=== PATIENT | female | born 1935 | race Caucasian/White ===

== ENCOUNTER 2018-02-23 10:24 | Emergency (ER) | payer MEDICARE, BC ==
[2018-02-23] MEDS ORDERED: Metoprolol Tartrate 50 MG Tab PO ONE (11:12)
[2018-02-23 11:27] VITALS: BP 155/81
--- NOTE | 2018-02-23 11:28 | EDM.PDOC ---
ED HPI GENERAL MEDICAL PROBLEM - General Chief Complaint: Cardiovascular Problem Stated Complaint: FAST PULSE,SOB Time Seen by Provider: 02/23/18 11:10 Source of Information: Reports: Patient, Family, Old Records, RN History Limitations: Reports: No Limitations - History of Present Illness INITIAL COMMENTS - FREE TEXT/NARRATIVE: 83 yo female with previous tachycardia was recently placed on metoprolol tartrate 50 mg bid for this tachycardia and had an outpatient CT scan of her chest this morning as part of the work up for her tachycardia. She did not take the metoprolol this morning as they wanted her NPO for the CT and she thought she had to take it with food. Is now more SOB and her heart faster so comes to the ER for evaluation(may be more symptomatic due to not taking her metoprolol) . Has known COPD and uses oxygen at home on a prn basis. Denies fever, cough, pain with breathing, leg edema, calf pain, vomiting, diarrhea, or chest pain. - Related Data Allergies Allergy/AdvReac Type Severity Reaction Status Date / Time No Known Allergies Allergy Verified 02/23/18 10:37 Home Meds: Home Meds Anastrozole 1 tab PO DAILY 04/12/15 [History] Montelukast [Singulair] 10 mg PO ONETIME 04/12/15 [History] Pramipexole [Mirapex] 0.5 mg PO BEDTIME 04/12/15 [History] Valsartan/Hydrochlorothiazide [Valsartan-Hctz 80-12.5 mg Tab] 12.5 - 80 mg PO DAILY 04/12/15 [History] Venlafaxine HCl [Venlafaxine ER] 37.5 mg PO BEDTIME 04/12/15 [History] Albuterol Sulfate [Proair Hfa] 2 puff IH Q4HR PRN 10/11/15 [History] Fluticasone/Salmeterol [Advair 250-50 Diskus] 1 puff INH BID 10/11/15 [History] Levalbuterol Tartrate [Levalbuterol Tartrate Hfa] 2 puff IH DAILY 02/23/18 [ History] Metoprolol Tartrate 50 mg PO BID 02/23/18 [History] Past Medical History HEENT History: Reports: Cataract, Impaired Vision Cardiovascular History: Reports: Hypertension Respiratory History: Reports: Asthma, COPD Gastrointestinal History: Reports: Cholelithiasis, GERD Other OB/BYN History: Bilateral mastectomy Musculoskeletal History: Reports: Arthritis, Osteoporosis Oncologic (Cancer) History: Reports: Breast Dermatologic History: Reports: Benign Melanoma - Infectious Disease History Infectious Disease History: Reports: C-Difficile, Measles, Mumps, Shingles - Past Surgical History HEENT Surgical History: Reports: Cataract Surgery GI Surgical History: Reports: Cholecystectomy Oncologic Surgical History: Reports: Mastectomy Dermatological Surgical History: Reports: Skin Biopsy Social & Family History - Tobacco Use Smoking Status *Q: Never Smoker Second Hand Smoke Exposure: Yes - Caffeine Use Caffeine Use: Reports: Soda - Alcohol Use Days Per Week of Alcohol Use: 0 - Recreational Drug Use Recreational Drug Use: No ED ROS GENERAL - Review of Systems Review Of Systems: See Below Constitutional: Reports: No Symptoms HEENT: Reports: No Symptoms Respiratory: Reports: Shortness of Breath Cardiovascular: Reports: Palpitations GI/Abdominal: Reports: No Symptoms : Reports: No Symptoms Musculoskeletal: Reports: No Symptoms Skin: Reports: No Symptoms Neurological: Reports: No Symptoms Psychiatric: Reports: Anxiety ED EXAM, GENERAL - Physical Exam Exam: See Below Exam Limited By: No Limitations General Appearance: Alert, WD/WN, No Apparent Distress, Anxious Eye Exam: Bilateral Eye: Normal Inspection Ears: Normal External Exam, Normal Canal, Hearing Grossly Normal, Normal TMs Ear Exam: Bilateral Ear: Auricle Normal, Canal Normal, TM normal Nose: Normal Inspection, Normal Mucosa, No Blood Throat/Mouth: Normal Inspection, Normal Lips, Normal Oropharynx, Normal Voice, No Airway Compromise Head: Atraumatic, Normocephalic Neck: Normal Inspection, Supple, Non-Tender Respiratory/Chest: No Respiratory Distress, Lungs Clear, Normal Breath Sounds, No Accessory Muscle Use Cardiovascular: Regular Rate, Rhythm, No Edema, Tachycardia GI/Abdominal: Normal Bowel Sounds, Soft, Non-Tender, No Distention Back Exam: Normal Inspection. No: CVA Tenderness (R), CVA Tenderness (L) Extremities: Normal Inspection, Normal Range of Motion, Non-Tender, No Pedal Edema Neurological: Alert, Oriented, CN II-XII Intact, Normal Cognition, No Motor/ Sensory Deficits Psychiatric: Normal Affect, Normal Mood, Anxious Skin Exam: Warm, Dry, Intact, Normal Color, No Rash Lymphatic: No Adenopathy Course - Vital Signs Text/Narrative:: Chest CT scan done as outpatient before ER arrival negative for any pathology. Feeling back to normal after administration of metoprolol tartrate 50 mg po Last Recorded V/S: Last Vital Signs Temp 37.4 C 02/23/18 10:32 Pulse 114 H 02/23/18 11:23 Resp 36 H 02/23/18 10:32 BP 155/81 H 02/23/18 11:23 Pulse Ox 96 02/23/18 10:32 - Orders/Labs/Meds Meds: Medications Discontinued Medications Generic Name Dose Route Start Last Admin Trade Name Freq PRN Reason Stop Dose Admin Metoprolol Tartrate 50 mg 02/23/18 11:12 02/23/18 11:23 Lopressor PO 02/23/18 11:13 50 mg ONETIME ONE Administration Departure - Departure Time of Disposition: 12:13 Disposition: Home, Self-Care 01 Condition: Good Clinical Impression: Tachycardia, Anxiety - Discharge Information Referrals: Nikolay Whittaker JIG HAND [Primary Care Provider] - Forms: ED Department Discharge
== END 2018-02-23 12:47 | disposition home or self-care (01) ==
LOC: JP.ED 10:24
DX: R00.0 Tachycardia, unspecified (principal); F41.9 Anxiety disorder, unspecified; I10 Essential (primary) hypertension; J44.9 Chronic obstructive pulmonary disease, unspecified; Z79.899 Other long term (current) drug therapy; Z77.22 Contact with and (suspected) exposure to environmental tobacco smoke (acute) (chronic); J43.9 Emphysema, unspecified; R06.00 Dyspnea, unspecified; R91.8 Other nonspecific abnormal finding of lung field
CPT/HCPCS: 71260; 99284; A9270; J7030; Q9967

== ENCOUNTER 2019-06-27 20:04 | Emergency (ER) | payer MEDICARE, BC ==
--- NOTE | 2019-06-28 00:03 | CRLCR ---
INDICATION: Wrist pain after fall. COMPARISON: None available. TECHNIQUE: AP, lateral, and oblique views of the right wrist are obtained for a total of three views. FINDINGS: There appears to be an acute on chronic fracture of the distal radius. There are well-defined areas of cortical disruption along the radial aspect of the distal radius, seen both on the AP and oblique views. There is a transverse fracture line across the distal radius which is poorly defined and has mild sclerosis, consistent with a healed or healing fracture. There is mild dorsal angulation of the distal portion of the radius consistent with impaction. What appears to be a small ossific fragment located dorsal to the distal radius is possibly partially healed with the rest of the distal radius. There is a transverse fracture of the ulnar styloid with mild distraction of fracture fragments. 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 The bones of the carpus are in anatomic alignment with the distal radius. 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 There is mild widening of the scapholunate articulation consistent with disruption of the scapholunate ligament. The soft tissues are normal in appearance with no sign of foreign body. IMPRESSION: Findings suggesting an acute, nondisplaced fracture of the radial aspect of the distal radius superimposed upon a healed or healing transverse fracture of the distal radius. Please see the discussion above. Mild dorsal angulation of the distal portion of the radius consistent with impaction. Transverse fracture of the base of the ulnar styloid with mild distraction, with ill-defined margins consistent with a subacute fracture and nonunion. 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 Dictated by Marquez Macias MD @ Jun 27 2019 11:55PM Signed by Dr. Marquez Macias @ Jun 28 2019 12:02AM
[2019-06-28] MEDS ORDERED: Ibuprofen 600 MG Tab PO ONE (00:12)
--- NOTE | 2019-06-28 00:17 | EDM.PDOC ---
ED HPI GENERAL MEDICAL PROBLEM - General Chief Complaint: Upper Extremity Injury/Pain Stated Complaint: FELL BROKE WRIST Time Seen by Provider: 06/27/19 23:40 Source of Information: Reports: Patient, Family, RN Notes Reviewed History Limitations: Reports: No Limitations - History of Present Illness INITIAL COMMENTS - FREE TEXT/NARRATIVE: 84-year-old female presents emergency department today following a fall at home , she injured herself when she tripped over her oxygen tubing she has bruising on her right hand small cut on her left hand and a cut near her left ear she denies any loss of consciousness has no other complaints - Related Data Allergies Allergy/AdvReac Type Severity Reaction Status Date / Time No Known Allergies Allergy Verified 06/28/19 00:16 Home Meds: Home Meds Montelukast [Singulair] 10 mg PO ONETIME 04/12/15 [History] Pramipexole [Mirapex] 0.5 mg PO BEDTIME 04/12/15 [History] Valsartan/Hydrochlorothiazide [Valsartan-Hctz 80-12.5 mg Tab] 12.5 - 80 mg PO DAILY 04/12/15 [History] Venlafaxine HCl [Venlafaxine ER] 37.5 mg PO BEDTIME 04/12/15 [History] Albuterol Sulfate [Proair Hfa] 2 puff IH Q4HR PRN 10/11/15 [History] Fluticasone/Salmeterol [Advair 250-50 Diskus] 1 puff INH BID 10/11/15 [History] Levalbuterol Tartrate [Levalbuterol Tartrate Hfa] 2 puff IH DAILY 02/23/18 [ History] Metoprolol Tartrate 50 mg PO BID 02/23/18 [History] Albuterol [Proventil Neb Soln] 2.5 mg INH DAILY 06/28/19 [History] Past Medical History HEENT History: Reports: Cataract, Impaired Vision Cardiovascular History: Reports: Hypertension Respiratory History: Reports: Asthma, COPD, Other (See Below) Other Respiratory History: home O2 Gastrointestinal History: Reports: Cholelithiasis, GERD 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: Bilateral mastectomy Musculoskeletal History: Reports: Arthritis, Osteoporosis Oncologic (Cancer) History: Reports: Breast Dermatologic History: Reports: Benign Melanoma - Infectious Disease History Infectious Disease History: Reports: C-Difficile, Measles, Mumps, Shingles - Past Surgical History HEENT Surgical History: Reports: Cataract Surgery GI Surgical History: Reports: Cholecystectomy Oncologic Surgical History: Reports: Mastectomy Dermatological Surgical History: Reports: Skin Biopsy Social & Family History - Tobacco Use Smoking Status *Q: Never Smoker Second Hand Smoke Exposure: No - Caffeine Use Caffeine Use: Reports: Coffee, Soda - Recreational Drug Use Recreational Drug Use: No Review of Systems - Review of Systems Review Of Systems: See Below Constitutional: Reports: No Symptoms Eyes: Reports: No Symptoms Ears: Reports: No Symptoms Nose: Reports: No Symptoms Mouth/Throat: Reports: No Symptoms Respiratory: Reports: No Symptoms Cardiovascular: Reports: No Symptoms GI/Abdominal: Reports: No Symptoms Genitourinary: Reports: No Symptoms Musculoskeletal: Reports: Joint Pain (Wrist pain and pain bilaterally) Skin: Reports: Wound ED EXAM, GENERAL - Physical Exam Exam: See Below Free Text/Narrative:: General: Elderly female, not in any distress, alert and oriented x3 HEENT: head is small laceration is located near the left ear pinna normocephalic, eyes pupils equal round reactive to light, sclera clear no conjunctivitis appreciated. Ears tympanic membranes clear and hernández landmarks and light reflex are present bilaterally canals are clear. Nose no septal deviation, nares are clear, no blood present. Mouth mucosa is moist and pink no erythema or exudate noted in soft palate, tongue is midline uvula is midline, dentition is intact. Neck: Supple no thyromegaly no tracheal deviation. Nodes: Cervical nodes subclavicular nodes nontender no palpable lymphadenopathy noted. Lungs: clear to auscultation bilaterally with symmetrical respirations, no adventitious noise appreciated. CV: Regular rate and rhythm S1 and S2 appreciated no murmurs rubs or gallops noted. Abdomen: Soft, nontender, no palpable masses or organomegaly appreciated, no distention no guarding bowel sounds are present, . Neuro: GCS 15 Skin: Small 25 mm laceration is appreciated distal tip digit #3 Extremities: She has tenderness over the right wrist right hand area there is ecchymosis and tenderness around digit #3 PIP joint Course - Vital Signs Last Recorded V/S: Last Vital Signs Temp 96.8 F 06/27/19 21:32 Pulse 91 06/28/19 00:58 Resp 20 06/28/19 00:58 BP 182/77 H 06/28/19 00:58 Pulse Ox 98 06/27/19 21:51 - Orders/Labs/Meds Meds: Medications Discontinued Medications Generic Name Dose Route Start Last Admin Trade Name Tab PRN Reason Stop Dose Admin Ibuprofen 600 mg 06/28/19 00:12 06/28/19 00:48 Motrin PO 06/28/19 00:13 600 mg ONETIME ONE Administration Departure - Departure Time of Disposition: 01:25 Disposition: Home, Self-Care 01 Condition: Fair Clinical Impression: Radius fracture Qualifiers: Encounter type: initial encounter Radius location: distal Fracture type: closed Fracture morphology: unspecified fracture morphology Laterality: left Qualified Code(s): S52.502A - Unspecified fracture of the lower end of left radius, initial encounter for closed fracture - Discharge Information Referrals: Asia Cagle PA-C [Primary Care Provider] - Forms: ED Department Discharge Additional Instructions: Remain in splint until reevaluated by orthopedics, use Tylenol or Motrin as needed for pain control, please call to the assented clinic in the morning for an appointment time with orthopedics - Assessment/Plan Plan: Assessment Acuity = acute Site and laterality = left distal radius fracture and ulnar styloid fracture left Etiology = secondary to fall Manifestations = none Location of injury = Home Lab values = [x-ray describes fractures above Plan Called discussed case with orthopedics on-call [facility] at 1:20 kindly agreed to see the patient in the clinic in the morning she is placed in a volar slab splint will use Tylenol or Motrin as needed for pain control , splint placed by nursing This note was dictated using [employer] voice recognition software please call with any questions on syntax or grammar.
--- NOTE | 2019-06-28 00:18 | CRLCR ---
INDICATION: Hand pain after fall TECHNIQUE: Hand radiograph 3 views right COMPARISON: None FINDINGS: Bone: There is a nondisplaced fracture present in the distal radial metaphyseal region. A fracture of the base of the ulnar styloid is noted. Moderate diffuse osteopenia is noted. Joint: Moderate osteoarthritis of the 1st carpometacarpal joint is seen. 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 Severe osteoarthritis of the DIP joints are present and digits 3 through 5 and in the 4th PIP joint. Soft tissue: Unremarkable. No radiopaque foreign bodies are seen. IMPRESSIONS: 1. There is a nondisplaced fracture present in the distal radial metaphyseal region. 2. A fracture of the base of the ulnar styloid is noted. 3. 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 Dictated by Stu Church MD @ 06/28/2019 12:16:34 AM Dictated by: Stu Church MD @ 06/28/2019 00:16:39 (Electronically Signed)
[2019-06-28 00:59] VITALS: BP 182/77; PULSE 91
--- NOTE | 2019-06-28 01:08 | CRLCR ---
Indication: Pain after fall Technique: Three views Comparison: None Findings/Impression: Three views of the right 3rd digit show erosive osteoarthritis of the distal interphalangeal joint as well as osteoarthritis at the proximal interphalangeal joint. Similar changes are also noted in the 2nd and 4th digits. Mild dorsal subluxation at the proximal interphalangeal joint although this appears to be degenerative in nature. Prominent proximal soft tissue swelling without clear acute fracture. Dictated by Lucien Flores MD @ Jun 28 2019 1:04AM Signed by Dr. Lucien Flores @ Jun 28 2019 1:07AM
== END 2019-06-28 01:53 | disposition home or self-care (01) ==
LOC: JP.ED 20:04
DX: S52.501A Unspecified fracture of the lower end of right radius, initial encounter for closed fracture (principal); S52.611A Displaced fracture of right ulna styloid process, initial encounter for closed fracture; S61.212A Laceration without foreign body of right middle finger without damage to nail, initial encounter; S01.312A Laceration without foreign body of left ear, initial encounter; I10 Essential (primary) hypertension; J44.9 Chronic obstructive pulmonary disease, unspecified; Z98.49 Cataract extraction status, unspecified eye; Z90.49 Acquired absence of other specified parts of digestive tract; W01.0XXA Fall on same level from slipping, tripping and stumbling without subsequent striking against object, initial encounter; Y92.009 Unspecified place in unspecified non-institutional (private) residence as the place of occurrence of the external cause
CPT/HCPCS: 29125; 73110; 73130; 73140; 99283; 99284; A9270

== ENCOUNTER 2022-10-19 23:37 | Emergency (ER) | payer MEDICARE, BC ==
[2022-10-19] MEDS ORDERED: fentaNYL 100 MCG/2 ML SDV IM ONE (23:50)
[2022-10-20] MEDS ORDERED: Lidocaine 1% with EPINEPHrine 1:100,000 50 ML MDV SUBCUT STA (00:43)
[2022-10-20] MEDS ORDERED: ceFAZolin 1 GM in Premix Bag 1 BAG IV ONE (00:43)
[2022-10-20] MEDS ORDERED: ceFAZolin 1 GM Vial ONE (00:59)
[2022-10-20] MEDS ORDERED: Sodium Chloride 0.9% 50 ML ONE (01:00)
[2022-10-20] MEDS ORDERED: ceFAZolin 1 GM in Sodium Chloride 0.9% 50 ML IV ONE (01:06)
[2022-10-20] MEDS ORDERED: Propofol 200 MG/20 ML SDV ONE (01:24)
[2022-10-20] MEDS ORDERED: Diphtheria,Pertussis(Acell),Tetanus Vaccine 0.5 ML Syringe IM ONE (01:34)
[2022-10-20 03:09] VITALS: BP 133/63; PULSE 78
== END 2022-10-20 03:13 | disposition home or self-care (01) ==
LOC: JP.ED 23:37
DX: S52.501B Unspecified fracture of the lower end of right radius, initial encounter for open fracture type I or II (principal); S52.601B Unspecified fracture of lower end of right ulna, initial encounter for open fracture type I or II; J44.9 Chronic obstructive pulmonary disease, unspecified; I10 Essential (primary) hypertension; Z79.899 Other long term (current) drug therapy; Z90.49 Acquired absence of other specified parts of digestive tract; W01.0XXA Fall on same level from slipping, tripping and stumbling without subsequent striking against object, initial encounter
CPT/HCPCS: 25605; 73080; 73110; 76000; 90471; 90715; 96372; 96374; 99283; J0690; J2704; J3010

== ENCOUNTER 2022-10-22 21:22 | Inpatient (IN) | payer MEDICARE, BC ==
[2022-10-23] MEDS ORDERED: Sodium Chloride 0.9% 10 ML Syringe FLUSH PRN (00:04)
[2022-10-23 01:02] LABS: ESTIMATED GFR 54 mL/min (>60)
[2022-10-23] MEDS ORDERED: Potassium Chloride 20 MEQ Tab.ER PO ONE ×3 (01:05→20:29)
[2022-10-23] MEDS: Potassium Chloride 10 MEQ in Premix Bag 1 BAG IV SCH ×4 (01:15→07:35)
[2022-10-23] MEDS ORDERED: Magnesium Sulfate/Water 2 GM in Premix Bag 1 BAG IV ONE (01:22)
[2022-10-23] MEDS ORDERED: Potassium Chloride 10 MEQ in Premix Bag 1 BAG IV SCH (02:00)
[2022-10-23] MEDS ORDERED: Ondansetron 4 MG Tab.DIS PO PRN (03:03)
[2022-10-23] MEDS ORDERED: Acetaminophen 325 MG Tab PO PRN (03:03)
[2022-10-23] MEDS ORDERED: Albuterol 0.083% 2.5 MG/3 ML Neb Soln NEB PRN (03:03)
[2022-10-23] MEDS ORDERED: Magnesium Hydroxide 400 MG/5 ML Susp 30 ML Cup PO PRN (03:03)
[2022-10-23] MEDS ORDERED: Ondansetron 4 MG/2 ML SDV IV PRN (03:03)
[2022-10-23] MEDS ORDERED: Lactated Ringers 1,000 ML IV SCH (03:03)
[2022-10-23] MEDS: Sodium Chloride 0.9% 1,000 ML IV SCH ×2 (04:02→12:21)
[2022-10-23] MEDS ORDERED: Potassium Chloride 10 MEQ in Premix Bag 2 BAG IV ONE (05:52)
[2022-10-23] MEDS: Acetaminophen 325 MG Tab PO SCH ×5 (06:16→21:09)
[2022-10-23] MEDS: Carvedilol 12.5 MG Tab PO SCH ×2 (07:29→17:06)
[2022-10-23] MEDS ORDERED: Non-Formulary Medication 1 Each (Budesonide/Formoterol [Symbicort 160-4.5 Mcg Inhaler (6 G INH SCH (09:00)
[2022-10-23] MEDS ORDERED: hydrALAZINE 25 MG Tab PO SCH (09:00)
[2022-10-23] MEDS ORDERED: VALSARTAN 320 MG PO SCH (09:00)
[2022-10-23] MEDS ORDERED: Formoterol/Mometasone 200-5 MCG 8.8 GM Inhaler IH SCH (09:00)
[2022-10-23] MEDS: Furosemide 20 MG Tab PO SCH (09:20)
[2022-10-23] MEDS: Citalopram 20 MG Tab PO SCH (20:30)
[2022-10-23] MEDS: amLODIPine 5 MG Tab PO SCH (20:30)
[2022-10-23] MEDS: Losartan 50 MG Tab PO SCH (20:31)
[2022-10-23] MEDS ORDERED: Pramipexole 0.5 MG Tab PO SCH (21:00)
[2022-10-24] MEDS ORDERED: Sodium Chloride 0.9% 1,000 ML IV SCH (00:01)
[2022-10-24] MEDS: Acetaminophen 325 MG Tab PO SCH ×4 (05:37→21:22)
[2022-10-24] MEDS ORDERED: Bupivacaine 0.5% 30 ML SDV ONE (06:10)
[2022-10-24] MEDS ORDERED: Lidocaine 0.5% 50 ML SDV ONE (07:22)
[2022-10-24] MEDS ORDERED: Propofol 200 MG/20 ML SDV ONE (07:23)
[2022-10-24] MEDS: Carvedilol 12.5 MG Tab PO SCH ×2 (07:31→17:32)
[2022-10-24] MEDS ORDERED: ceFAZolin 1 GM in Premix Bag 1 BAG IV ONE (09:00)
[2022-10-24] MEDS: Furosemide 20 MG Tab PO SCH (09:59)
[2022-10-24] MEDS ORDERED: Morphine 2 MG/ML SYRINGE IVPUSH PRN (13:22)
[2022-10-24] MEDS: Loperamide 2 MG Cap PO PRN (14:00)
[2022-10-24] MEDS: traMADol 50 MG Tab PO PRN ×2 (14:00→20:17)
[2022-10-24] MEDS: Losartan 50 MG Tab PO SCH (21:23)
[2022-10-24] MEDS: Citalopram 20 MG Tab PO SCH (21:23)
[2022-10-24] MEDS: amLODIPine 5 MG Tab PO SCH (21:23)
[2022-10-25] MEDS: Acetaminophen 325 MG Tab PO SCH ×4 (06:00→23:00)
[2022-10-25] MEDS ORDERED: Magnesium Sulfate/Water 2 GM in Premix Bag 1 BAG IV SCH (08:30)
[2022-10-25] MEDS: Carvedilol 12.5 MG Tab PO SCH ×2 (08:43→16:17)
[2022-10-25] MEDS: Furosemide 20 MG Tab PO SCH (08:43)
[2022-10-25] MEDS: Loperamide 2 MG Cap PO PRN (09:16)
[2022-10-25] MEDS: traMADol 50 MG Tab PO PRN ×2 (09:16→14:56)
[2022-10-25] MEDS: Magnesium Oxide 400 MG Tab PO SCH ×2 (09:17→20:50)
[2022-10-25] MEDS: Losartan 50 MG Tab PO SCH (20:50)
[2022-10-25] MEDS: amLODIPine 5 MG Tab PO SCH (20:53)
[2022-10-25] MEDS: Citalopram 20 MG Tab PO SCH (20:53)
[2022-10-26] MEDS: Acetaminophen 325 MG Tab PO SCH ×3 (06:12→15:40)
[2022-10-26] MEDS: Carvedilol 12.5 MG Tab PO SCH (08:37)
[2022-10-26] MEDS: Magnesium Oxide 400 MG Tab PO SCH (08:37)
[2022-10-26] MEDS: Furosemide 20 MG Tab PO SCH (08:38)
[2022-10-26 14:26] VITALS: BP 129/54; PULSE 76
[2022-10-26] MEDS: traMADol 50 MG Tab PO PRN (14:26)
== END 2022-10-26 15:45 | DRG 982 ==
LOC: JP.ED 21:22 → UNDOADMIN 10-23 02:26 → JP.MS 10-23 02:26
PROVIDERS: ADMIT Hospitalist; ATTEND Internal Medicine
PROC: 0PSH04Z Reposition Right Radius with Internal Fixation Device, Open Approach (ICD-10-PCS; principal; 2022-10-22)
DX: R53.1 Weakness (principal); E87.6 Hypokalemia; S52.501A Unspecified fracture of the lower end of right radius, initial encounter for closed fracture; Z74.09 Other reduced mobility; Z99.81 Dependence on supplemental oxygen; R63.0 Anorexia; S52.601E Unspecified fracture of lower end of right ulna, subsequent encounter for open fracture type I or II with routine healing; S52.601A Unspecified fracture of lower end of right ulna, initial encounter for closed fracture; R19.7 Diarrhea, unspecified; E83.42 Hypomagnesemia; J44.9 Chronic obstructive pulmonary disease, unspecified; M19.90 Unspecified osteoarthritis, unspecified site; Z79.51 Long term (current) use of inhaled steroids; Z66 Do not resuscitate; Z20.822 Contact with and (suspected) exposure to COVID-19; K21.9 Gastro-esophageal reflux disease without esophagitis; M81.0 Age-related osteoporosis without current pathological fracture; I10 Essential (primary) hypertension; R63.4 Abnormal weight loss; Z79.899 Other long term (current) drug therapy; Z68.25 Body mass index [BMI] 25.0-25.9, adult
CPT/HCPCS: 36415; 73110 ×2; 80053; 81001; 83735; 85025; 86140; 87493; 93005; 96365; 96367; 99285; A9270; J3475; J3480; J3490; U0002; 76000; 80048; 84132; 87046; 87899; 96125-GO; 96368; 97110-GP; 97162-GP; 97165-GO; 97530-GP; 97535-GP; 99222; 99232; 99239; C1713; J0690; J2270; J2704; J7030